=== PATIENT | male | born 1960 | race Caucasian/White ===

== ENCOUNTER 2020-05-13 14:35 | Inpatient (IN) | payer OTHER ==
[~2020-05-13] VITALS: Ht 175.3 cm; Wt 77.1 kg
--- NOTE | 2020-05-13 15:06 | NUR ---
BIBS FROM HOME TO ER BED 9. AAOX4. NOT IN RESP DISTRESS, BREATHING EVEN AND UNLABORED. AMBULATORY. CAME IN FOR L LATERAL RIB AREA PAIN X 2 MONTHS. PAIN IS RATE 8/10 SHARP. AWAITING MD FOR EVAL.
[2020-05-13 15:24] LABS: BASOPHILS # (AUTO) 0.1 /CMM (0.0-0.2); BASOPHILS % (AUTO) 1.1 % (0.0-2.0); EOSINOPHILS % (AUTO) 2.8 % (0.0-6.0); HEMATOCRIT 31 % (39-51); HEMOGLOBIN 10.1 g/dL (13.5-17.5); LYMPHOCYTES # (AUTO) 1.1 /CMM (0.8-4.8); LYMPHOCYTES % (AUTO) 15.5 % (20.0-44.0); MEAN CORPUSCULAR HGB CONC 32 g/dl (31.0-36.0); MEAN CORPUSCULAR VOLUME 84 fL (80-96); MONOCYTES # (AUTO) 0.7 /CMM (0.1-1.30); MONOCYTES % (AUTO) 9.8 % (2.0-12.0); NEUTROPHILS # (AUTO) 4.8 /CMM (1.8-8.9); NEUTROPHILS % (AUTO) 70.8 % (43.0-81.0); PLATELET COUNT (AUTO) 356 /CMM (150-450); RED BLOOD CELL COUNT(AUTO) 3.71 MIL/uL (4.5-6.0); WHITE BLOOD COUNT (AUTO) 6.8 K/uL (4.3-11.0)
[2020-05-13 15:33] LABS: CALCIUM, SERUM 9.2 mg/dL (8.5-10.1); CARBON DIOXIDE 28 mmol/L (21-32); CHLORIDE 99 mmol/L (98-107); CREATININE 1.4 mg/dL (0.6-1.3); GLUCOSE 212 mg/dL (74-106); SODIUM SERUM 137 mmol/L (136-145); UREA NITROGEN, BLOOD 25 mg/dL (7-18)
[2020-05-13 15:47] LABS: ALANINE AMINOTRANSFERASE 39 U/L (12-78); ALBUMIN 2.8 g/dL (3.4-5.0); ALKALINE PHOSPHATASE 81 U/L (46-116); ASPARTATE AMINOTRANSFERASE 21 U/L (15-37); B-TYPE NATRIURETIC PEPTIDE 1327 PG/ML (0-125); BILIRUBIN,DIRECT 0.1 mg/dL (0.0-0.2); BILIRUBIN,TOTAL 0.4 mg/dL (0.2-1.0); TOTAL PROTEIN, SERUM 7.5 g/dL (6.4-8.2)
[2020-05-13] MEDS ORDERED: IV NS 0.9% 250 ML IV ONE (16:53)
[2020-05-13] MEDS ORDERED: IOHEXOL-350 100 ML VIAL IV ONE (16:53)
[2020-05-13] MEDS ORDERED: ONDANSETRON HCL/PF - ER 4 MG/2 ML VIAL IV ONE (17:00)
[2020-05-13] MEDS ORDERED: MORPHINE SULFATE INJ 2 MG/ML DISP.SYRIN IV ONE (17:00)
[2020-05-13] MEDS ORDERED: ATOR40TA PO (17:07)
[2020-05-13] MEDS ORDERED: BENA10TA74 PO (17:07)
[2020-05-13] MEDS ORDERED: OMEP40CA13 PO (17:07)
[2020-05-13] MEDS ORDERED: METF-442 PO (17:07)
[2020-05-13] MEDS ORDERED: GLIM4TAB37 PO (17:07)
[2020-05-13] MEDS ORDERED: ONDANSETRON HCL/PF 4 MG/2 ML VIAL ONE (17:29)
[2020-05-13] MEDS ORDERED: MORPHINE SULFATE INJ 2 MG/ML DISP.SYRIN ONE (17:29)
[2020-05-13] MEDS ORDERED: ENOXAPARIN SODIUM 80 MG/0.8 ML DISP.SYRIN SQ STA (18:03)
[2020-05-13] MEDS ORDERED: ENOXAPARIN SODIUM 80 MG/0.8 ML DISP.SYRIN SQ ONE (18:05)
[2020-05-13] MEDS ORDERED: DEXTROSE 50%-WATER 50 ML DISP.SYRIN IV PRN (18:30)
[2020-05-13] MEDS ORDERED: ONDANSETRON HCL/PF 4 MG/2 ML VIAL IVP PRN (18:30)
[2020-05-13] MEDS ORDERED: ACETAMINOPHEN 325 MG TABLET PO PRN (18:30)
[2020-05-13] MEDS ORDERED: Z GUARD REMEDY 2 OZ OINT TP PRN (18:30)
[2020-05-13] MEDS ORDERED: MAGNESIUM HYDROXIDE 30 ML UDC PO PRN (18:30)
[2020-05-13] MEDS ORDERED: ZOLPIDEM TARTRATE 5 MG TABLET PO PRN (18:30)
[2020-05-13] MEDS: BLOOD SUGAR DIAGNOSTIC 1 EACH STRIP IN SCH (22:20)
[2020-05-13] MEDS ORDERED: ATORVASTATIN 40 MG TABLET ONE (22:23)
[2020-05-13] MEDS: ATORVASTATIN 40 MG TABLET PO SCH (22:23)
--- NOTE | 2020-05-14 01:37 | NUR ---
PT RESTING COMFORTBLY. VSS.
[2020-05-14 05:00] LABS: BASOPHILS # (AUTO) 0.1 /CMM (0.0-0.2); EOSINOPHILS % (AUTO) 4.2 % (0.0-6.0); HEMATOCRIT 31 % (39-51); HEMOGLOBIN 9.8 g/dL (13.5-17.5); LYMPHOCYTES % (AUTO) 16.1 % (20.0-44.0); MEAN CORPUSCULAR HGB CONC 32 g/dl (31.0-36.0); MEAN CORPUSCULAR VOLUME 84 fL (80-96); MONOCYTES # (AUTO) 0.7 /CMM (0.1-1.30); MONOCYTES % (AUTO) 12.3 % (2.0-12.0); NEUTROPHILS % (AUTO) 66.4 % (43.0-81.0); PLATELET COUNT (AUTO) 359 /CMM (150-450); RED BLOOD CELL COUNT(AUTO) 3.68 MIL/uL (4.5-6.0)
--- NOTE | 2020-05-14 07:24 | NUR ---
REPORT GIVEN TO JOSSE STRONG FOR MARGI
[2020-05-14] MEDS: BLOOD SUGAR DIAGNOSTIC 1 EACH STRIP IN SCH ×4 (07:50→21:42)
[2020-05-14] MEDS ORDERED: PANTOPRAZOLE 40 MG TABLET.DR PO ONE (07:57)
[2020-05-14] MEDS ORDERED: ENOXAPARIN SODIUM 80 MG/0.8 ML DISP.SYRIN SQ ONE (07:57)
[2020-05-14] MEDS: PANTOPRAZOLE 40 MG TABLET.DR PO SCH (08:03)
[2020-05-14] MEDS: ENOXAPARIN SODIUM 80 MG/0.8 ML DISP.SYRIN SQ SCH ×2 (08:04→21:00)
[2020-05-14 08:39] LABS: CALCIUM, SERUM 9.2 mg/dL (8.5-10.1); MAGNESIUM 1.6 mg/dL (1.8-2.4); PHOSPHORUS 4.1 mg/dL (2.5-4.9)
--- NOTE | 2020-05-14 09:27 | NUR ---
PATEINT SEEN AND EVALUATED BY DR. SCHAFFER AND SUELLEN MCCORMICK NP THIS AM. PATIENT REMAINS ON ROOM AIR WITH SPO2 OF 91-94%. NO SOB NOTED. BREAKFAST GIVEN AND TOLERATED WELL.
[2020-05-14 11:19] LABS: IRON, SERUM 21 ug/dl (50-175); TOTAL IRON BINDING CAPACITY 174 ug/dl (250-450)
[2020-05-14] MEDS ORDERED: Magnesium 1GM/D5W 100ML PREMIX 200 ML IV ONE (11:58)
[2020-05-14] MEDS: INSULIN REGULAR, HUMAN 100 UNIT/ML 3 ML VIAL SQ PRN ×2 (12:00→21:46)
[2020-05-14] MEDS: Magnesium 1GM/D5W 100ML PREMIX 100 ML IV SCH ×2 (12:06→13:21)
[2020-05-14 12:09] LABS: FERRITIN 1244 ng/mL (8-388)
--- NOTE | 2020-05-14 17:06 | NUR ---
CT BIOPSY TOMORROW, NPO AFTER MIDNIGHT & HOLD LOVENOX TONIGHT
--- NOTE | 2020-05-14 17:07 | NUR ---
PATIENT REPORTED X2 WEEKS OF DIARRHEA.
--- NOTE | 2020-05-14 18:30 | NUR ---
REPORT GIVEN TO MARYANA STRONG FOR MARGI.
--- NOTE | 2020-05-14 18:38 | NUR ---
PATIENT TRANSFERRED TOR OOM 328-1 VIA ACLS PROTOCOL. NO DISTRESS NOTED. PATIENT IN STABLE CONDITION.
--- NOTE | 2020-05-14 18:50 | NUR ---
ADVERTISING SALES EXECUTIVE NOTE PATIENT ARRIVED FROM ER BY KALYANI. PATIENT IN NO ACUTE DISTRESS. NO SOB NOTED. PATIENT BREATHING IS EVEN AND UNLABORED. PATIENT VITAL SIGNS ARE STABLE. PATIENT BP 144/70, HR 79, TEMP 98.6F, RR 18, AND ON RA SATURATING >95% SPO2. PATIENT BED IS LOCKED AND IN LOWEST POSITION. CALL LIGHT WITHIN REACH. WILL ENDORSE ADMISSION TO PM SHIFT FOR MARGI.
[2020-05-14 20:00] VITALS: BP 147/73
--- NOTE | 2020-05-14 20:00 | NUR ---
RN NOTES : RECEIVED PATIENT FROM DAY NURSE,PT. CAME FROM ER TO ADMIT TELE, AWAKE ALERT AND ORIENTEDX3,RESPIRATIONS EVEN AND UNLABORED WITH EQUAL RISE AND FALL OF CHEST, PLACED ON VETERINARIAN POULTRY, SR 78, RIGHT AC # 18 G INTACT, PT. REFUSED SKIN ASSESSMNT ENCOURAGED, STILL REFUSED DISCUSSED PLAN OF CARE , ORIENTED TO STAFF AND CALL LIGHT AND KEPT WITHIN REACH, SAFETY PRECAUTIONS MAINTAINED,ALL NEEDS ATTENDED, WILL CONTINUE TO MONITOR , WILL CONTINUE TO MONITOR..
[2020-05-14] MEDS: HYDROCODONE/APAP 5/325MG TABLET PO PRN (20:23)
[2020-05-14 21:04] VITALS: BP 135/78
[2020-05-14] MEDS: ATORVASTATIN 40 MG TABLET PO SCH (21:42)
[2020-05-15] VITALS (7 sets, daily range): BP systolic 116–136; BP diastolic 64–98
--- NOTE | 2020-05-15 07:01 | NUR ---
RN NOTES: PT. IS NPO FOR PROCEDURES PER MD ORDERS , OBTAINED CONSENT FOR PROCEDURES , PT. BS # [id number] AND REFUSED COVERAGE, PER PT. MY BLOOD SUGAR IF FINE., ENDORSE TO AM NURSE FOR CONTUNITY OF CARE.
[2020-05-15 07:15] LABS: CALCIUM, SERUM 9.4 mg/dL (8.5-10.1); CREATININE 0.8 mg/dL (0.6-1.3); PHOSPHORUS 3.4 mg/dL (2.5-4.9); POTASSIUM 4.5 mmol/L (3.5-5.1)
[2020-05-15 07:19] LABS: HEMATOCRIT 33 % (39-51); HEMOGLOBIN 10.6 g/dL (13.5-17.5); MEAN CORPUSCULAR VOLUME 83 fL (80-96); RED BLOOD CELL COUNT(AUTO) 3.99 MIL/uL (4.5-6.0); WHITE BLOOD COUNT (AUTO) 5.7 K/uL (4.3-11.0)
[2020-05-15 07:20] LABS: BASOPHILS # (AUTO) 0.1 /CMM (0.0-0.2); EOSINOPHILS % (AUTO) 3.6 % (0.0-6.0); LYMPHOCYTES % (AUTO) 17.3 % (20.0-44.0); MEAN CORPUSCULAR HGB CONC 32 g/dl (31.0-36.0); MONOCYTES # (AUTO) 0.6 /CMM (0.1-1.30); MONOCYTES % (AUTO) 11.3 % (2.0-12.0); NEUTROPHILS # (AUTO) 3.8 /CMM (1.8-8.9); NEUTROPHILS % (AUTO) 66.8 % (43.0-81.0); PLATELET COUNT (AUTO) 379 /CMM (150-450)
[2020-05-15] MEDS: PANTOPRAZOLE 40 MG TABLET.DR PO SCH (07:30)
[2020-05-15] MEDS: BLOOD SUGAR DIAGNOSTIC 1 EACH STRIP IN SCH ×4 (07:34→22:39)
--- NOTE | 2020-05-15 07:45 | NUR ---
LIBRARY CATALOGING TECHNICIAN OPENING NOTES RECEIVED PATIENT IN BED, ASLEEP. PATIENT ON ROOM AIR; BREATHING EVEN AND UNLABORED, NO SOB NOTED. NO S/S OF PAIN SUCH MOANING, FACIAL GRIMACING OR GUARDING AT THIS TIME. RAC IV ACCESS G #18 PRESENT AND INTACT. NPO AT THIS TIME. SAFETY PRECAUTIONS IN PLACE; BED IN LOW POSITION AND LOCKED, RAILS UP X2, CALL LIGHT WITHIN REACH. WILL CONTINUE TO MONITOR PATIENT.
[2020-05-15] MEDS: ENOXAPARIN SODIUM 80 MG/0.8 ML DISP.SYRIN SQ SCH ×2 (08:02→21:03)
--- NOTE | 2020-05-15 08:02 | NUR ---
DIRECTOR STATE PHARMACY NOTES PER MD HOLD RORY WITHIN 12 HRS OF SCHEDULED BIOPSY. PER SCHEDULE BIOPSY TODAY 05/15/20
--- NOTE | 2020-05-15 14:19 | NUR ---
RESEARCH AND EVALUATION MANAGER NOTES PATIENT LEFT FOR PROCEDURE.
[2020-05-15] MEDS ORDERED: NALOXONE PREFILLED SYRINGE 2 MG/2 ML SYRINGE IV ONE (14:30)
[2020-05-15] MEDS ORDERED: MIDAZOLAM HCL 5MG/ML VIAL 25 MG/5 ML VIAL IV ONE (14:30)
[2020-05-15] MEDS ORDERED: FENTANYL PF 250MCG/5ML AMPUL IV ONE (14:30)
[2020-05-15] MEDS: HYDROCODONE/APAP 5/325MG TABLET PO PRN ×2 (15:49→20:02)
--- NOTE | 2020-05-15 15:50 | NUR ---
INTERPRETER NOTES PATIENT COMPLAINING OF PAIN 12/08. PRN NORCO ADMINISTERED PER MD ORDER.
--- NOTE | 2020-05-15 18:50 | NUR ---
AGENT SPA DESK CLOSING NOTES PATIENT REMAINS IN BED, AWAKE, A/O X4; AFTER BIOPSY. PATIENT ON ROOM AIR; BREATHING EVEN AND UNLABORED, NO SOB NOTED DURING THE DAY. PAIN TREATED WITH PRN NORCO. RAC IV ACCESS G #18 PRESENT AND INTACT. ALL NEEDS ATTENDED THROUGHOUT THE DAY. SAFETY PRECAUTIONS IN PLACE; BED IN LOW POSITION AND LOCKED, RAILS UP X2, CALL LIGHT WITHIN REACH. WILL ENDORSE TO MENTAL HEALTH ADVANCED PRACTICE NURSE NURSE.
[2020-05-15] MEDS: ATORVASTATIN 40 MG TABLET PO SCH (22:13)
[2020-05-15] MEDS: INSULIN REGULAR, HUMAN 100 UNIT/ML 3 ML VIAL SQ PRN (22:17)
[2020-05-16] VITALS (7 sets, daily range): BP systolic 111–131; BP diastolic 56–71
[2020-05-16] MEDS: BLOOD SUGAR DIAGNOSTIC 1 EACH STRIP IN SCH ×5 (05:22→21:24)
--- NOTE | 2020-05-16 05:40 | NUR ---
CLOSING NOTES: ALERT AND ORIENTATED X4 AMBULATES TO THE BATHROOM NO SOB SNACK GIVEN AND CONSUMED 100% AMBIEN GIVEN FOR SLEEP AND EFFECTIVE
[2020-05-16] MEDS: HYDROCODONE/APAP 5/325MG TABLET PO PRN (07:21)
[2020-05-16] MEDS: PANTOPRAZOLE 40 MG TABLET.DR PO SCH (07:21)
--- NOTE | 2020-05-16 07:35 | NUR ---
WOOD FENCE ERECTOR OPENING NOTES PATIENT RECEIVED IN BED. A/O X4. AFEBRILE. NO S/SX OF RESPIRATORY DISTRESS. BREATHING EVEN AND UNLABORED. IV SITE R AC #18 G. SAFETY MEASURES MAINTAINED. BED IN LOWEST POSITION, LOCKED. SIDE RAILS UP X2. CALL LIGHT WITHIN REACH. WILL CONTINUE PLAN OF CARE.
[2020-05-16] MEDS: ENOXAPARIN SODIUM 80 MG/0.8 ML DISP.SYRIN SQ SCH ×2 (07:51→21:07)
[2020-05-16 08:35] LABS: BASOPHILS % (AUTO) 0.7 % (0.0-2.0); EOSINOPHILS % (AUTO) 4.2 % (0.0-6.0); HEMATOCRIT 34 % (39-51); LYMPHOCYTES # (AUTO) 1.2 /CMM (0.8-4.8); LYMPHOCYTES % (AUTO) 16.9 % (20.0-44.0); MEAN CORPUSCULAR HGB CONC 32 g/dl (31.0-36.0); MEAN CORPUSCULAR VOLUME 84 fL (80-96); MONOCYTES # (AUTO) 0.6 /CMM (0.1-1.30); NEUTROPHILS # (AUTO) 4.8 /CMM (1.8-8.9); NEUTROPHILS % (AUTO) 69.2 % (43.0-81.0); PLATELET COUNT (AUTO) 394 /CMM (150-450); RED BLOOD CELL COUNT(AUTO) 4.08 MIL/uL (4.5-6.0); WHITE BLOOD COUNT (AUTO) 6.9 K/uL (4.3-11.0)
[2020-05-16 08:44] LABS: CALCIUM, SERUM 9.6 mg/dL (8.5-10.1); CREATININE 0.8 mg/dL (0.6-1.3); MAGNESIUM 1.9 mg/dL (1.8-2.4); PHOSPHORUS 3.4 mg/dL (2.5-4.9); POTASSIUM 4.5 mmol/L (3.5-5.1)
[2020-05-16] MEDS: INSULIN REGULAR, HUMAN 100 UNIT/ML 3 ML VIAL SQ PRN ×2 (12:39→21:35)
--- NOTE | 2020-05-16 19:44 | NUR ---
CREAM DIPPER CLOSING NOTES PATIENT IN BED. A/O X4. AFEBRILE. IN NO APPARENT DISTRESS. BREATHING EVEN AND UNLABORED. IV SITE R AC #18 G. SAFETY MEASURES MAINTAINED. BED IN LOWEST POSITION, LOCKED. SIDE RAILS UP X2. CALL LIGHT WITHIN REACH. WILL ENDORSE TO TOBACCO STEMMER FOR MARGI.
--- NOTE | 2020-05-16 19:45 | NUR ---
MS/RN OPENING NOTE RECEIVED PATIENT IN BED AWAKE, A/OX4. NO S/SX OF ACUTE DISTRESS NOTED. DENIES PAIN OR DISCOMFORT AT THIS TIME. IV ACCESS ON RAC #18G PATENT AND INTACT. ALL SAFETY MEASURES IN PLACE BED LOCKED AND IN LOWEST POSITION, CALL LIGHT WITHIN REACH, WILL CONTINUE TO MONITOR AND ENSURE SAFETY.
[2020-05-16] MEDS: ATORVASTATIN 40 MG TABLET PO SCH (21:08)
[2020-05-17] MEDS: BLOOD SUGAR DIAGNOSTIC 1 EACH STRIP IN SCH ×4 (06:58→21:42)
[2020-05-17] MEDS: INSULIN REGULAR, HUMAN 100 UNIT/ML 3 ML VIAL SQ PRN ×3 (07:01→21:48)
--- NOTE | 2020-05-17 07:28 | NUR ---
MS/RN CLOSING NOTE RECEIVED PATIENT IN BED AWAKE, A/OX4. NO S/SX OF ACUTE DISTRESS NOTED. DENIES PAIN OR DISCOMFORT AT THIS TIME. IV ACCESS ON RAC #18G PATENT AND INTACT. ALL SAFETY MEASURES IN PLACE BED LOCKED AND IN LOWEST POSITION, CALL LIGHT WITHIN REACH, WILL CONTINUE TO MONITOR AND ENSURE SAFETY.
--- NOTE | 2020-05-17 07:30 | NUR ---
MS/RN Opening note Patient received from [facility] shift. A/O X3, vital signs stable, no fever noted. Denies any pain or discomfort at this time. All questions and concerns answered. Safety measures in place, call light within reach, will continue to monitor and ensure safety.
[2020-05-17 08:00] VITALS: BP 118/63
[2020-05-17 08:24] LABS: BASOPHILS # (AUTO) 0.1 /CMM (0.0-0.2); EOSINOPHILS % (AUTO) 2.8 % (0.0-6.0); HEMATOCRIT 34 % (39-51); LYMPHOCYTES % (AUTO) 15.8 % (20.0-44.0); MEAN CORPUSCULAR HGB CONC 32 g/dl (31.0-36.0); MEAN CORPUSCULAR VOLUME 83 fL (80-96); MONOCYTES # (AUTO) 0.6 /CMM (0.1-1.30); MONOCYTES % (AUTO) 9.5 % (2.0-12.0); NEUTROPHILS # (AUTO) 4.3 /CMM (1.8-8.9); NEUTROPHILS % (AUTO) 70.9 % (43.0-81.0); PLATELET COUNT (AUTO) 381 /CMM (150-450)
[2020-05-17] MEDS: PANTOPRAZOLE 40 MG TABLET.DR PO SCH (08:30)
[2020-05-17] MEDS: ENOXAPARIN SODIUM 80 MG/0.8 ML DISP.SYRIN SQ SCH (08:30)
[2020-05-17 08:39] LABS: CALCIUM, SERUM 9.5 mg/dL (8.5-10.1); CREATININE 0.9 mg/dL (0.6-1.3); MAGNESIUM 1.8 mg/dL (1.8-2.4); PHOSPHORUS 3.2 mg/dL (2.5-4.9); POTASSIUM 4.1 mmol/L (3.5-5.1)
--- NOTE | 2020-05-17 09:00 | NUR ---
MS/mobile heavy equipment mechanic Morning medication administered as ordered.
--- NOTE | 2020-05-17 11:00 | NUR ---
MS/RN S/B Willie PLANT OPERATIONS MANAGER Seen by PLANT OPERATIONS MANAGER - morning labs ordered, await thoracic consult with Dr Purdy.
--- NOTE | 2020-05-17 12:00 | NUR ---
MS/RN Bloodsugar Blood sugar at noon 366, coverage administered as per sliding scale.
--- NOTE | 2020-05-17 13:00 | NUR ---
MS/RN S/B Dr Severino Seen by Dr Severino - thoracic surgery consult evaluation for pleurx drain placement.
[2020-05-17 16:00] VITALS: BP 125/64
[2020-05-17] MEDS: HYDROCODONE/APAP 5/325MG TABLET PO PRN (16:41)
--- NOTE | 2020-05-17 17:00 | NUR ---
MS/RN Blood sugar Blood sugar at 5p - 109, no coverage needed.
--- NOTE | 2020-05-17 18:32 | NUR ---
MS/RN End note Patient remains in stable condition, all questions and concenrs addressed. Will endorse to power and recovery shift engineer.
[2020-05-17 19:35] VITALS: BP 128/66
[2020-05-17] MEDS: ATORVASTATIN 40 MG TABLET PO SCH (21:40)
[2020-05-18] MEDS: BLOOD SUGAR DIAGNOSTIC 1 EACH STRIP IN SCH ×4 (06:38→21:51)
[2020-05-18] MEDS: INSULIN REGULAR, HUMAN 100 UNIT/ML 3 ML VIAL SQ PRN ×3 (06:39→17:39)
[2020-05-18 07:22] LABS: BASOPHILS # (AUTO) 0.1 /CMM (0.0-0.2); BASOPHILS % (AUTO) 0.9 % (0.0-2.0); EOSINOPHILS % (AUTO) 3.5 % (0.0-6.0); HEMATOCRIT 33 % (39-51); HEMOGLOBIN 10.6 g/dL (13.5-17.5); LYMPHOCYTES # (AUTO) 1.1 /CMM (0.8-4.8); LYMPHOCYTES % (AUTO) 17.9 % (20.0-44.0); MEAN CORPUSCULAR HGB CONC 32 g/dl (31.0-36.0); MEAN CORPUSCULAR VOLUME 83 fL (80-96); MONOCYTES # (AUTO) 0.7 /CMM (0.1-1.30); MONOCYTES % (AUTO) 11.2 % (2.0-12.0); NEUTROPHILS # (AUTO) 4.1 /CMM (1.8-8.9); NEUTROPHILS % (AUTO) 66.5 % (43.0-81.0); PLATELET COUNT (AUTO) 378 /CMM (150-450); RED BLOOD CELL COUNT(AUTO) 3.98 MIL/uL (4.5-6.0); WHITE BLOOD COUNT (AUTO) 6.1 K/uL (4.3-11.0)
--- NOTE | 2020-05-18 07:35 | NUR ---
MS RN OPENING NOTES PT RECEIVED AWAKE IN BED IN NO ACUTE SIGNS OF DISTRESS. A/O X4. ABLE TO MAKE NEEDS KNOWN, DENIES PAIN OR ANY DISCOMFORTS AT THIS TIME. PT FOR CHEST TUBE PLACEMENT TODAY BY DR SRI RUIZ, NPO MAINTAINED. ON ROOM AIR, BREATHING EVEN AND UNLABORED. IV ACCESS ON RAC G#18 INTACT AND PATENT. SAFETY MEASURES IN PLACE: BED IN LOWEST LOCKED POSITION WITH SR UP X2. CALL LIGHT W/IN REACH. WILL CONTINUE TO MONITOR PT ACCORDINGLY.
[2020-05-18 07:37] LABS: CALCIUM, SERUM 9.3 mg/dL (8.5-10.1); CREATININE 0.9 mg/dL (0.6-1.3); POTASSIUM 4.7 mmol/L (3.5-5.1)
[2020-05-18 08:00] VITALS: BP 125/70
[2020-05-18] MEDS: PANTOPRAZOLE 40 MG TABLET.DR PO SCH (08:33)
--- NOTE | 2020-05-18 08:38 | NUR ---
RN NOTES RECEIVED CALL FROM DR RUIZ AND CANCELLED CHEST TUBE PLACEMENT TODAY AND HE WILL DO IT TOMORROW DUE TO NO AVAILABLE TIME IN O.R. TODAY. DR RUIZ WITH ORDER TO GIVE LOVENOX TODAY AND NPO TO BE ENFORCED TOMORROW. WILL CONTINUE TO MONITOR.
[2020-05-18] MEDS ORDERED: ENOXAPARIN SODIUM 80 MG/0.8 ML DISP.SYRIN SQ ONE (09:30)
--- NOTE | 2020-05-18 09:30 | NUR ---
m/s judge clerk: notes received pt sitting up in bed awake, a/ox4, but depressed and suicidal, pt wants to jump off the window. cn aware. pancho (acnp) aware and pt for psych eval.
--- NOTE | 2020-05-18 10:30 | NUR ---
m/s water maintenance supervisor: notes pt is on the phone at this time. no distress noted. awaiting for psych eval. will continue to monitor.
[2020-05-18] MEDS ORDERED: BUPIVACAINE 0.25% 75 MG/30 ML VIAL ONE (11:50)
[2020-05-18] MEDS ORDERED: EPINEPHRINE (1:1000) 1 MG/ML AMPUL ONE (11:51)
--- NOTE | 2020-05-18 12:00 | NUR ---
tele senior oracle soa developer: notes having lunch at this time. denies si/hi at this time. encouraged to verbalized feelings. will continue to monitor.
--- NOTE | 2020-05-18 14:00 | NUR ---
m/s receiving barn custodian: notes resting quietly in bed. no distress noted. still awaiting for psych eval. call light within reach.
[2020-05-18 16:00] VITALS: BP 135/83
--- NOTE | 2020-05-18 17:00 | NUR ---
m/s liquid hydrogen plant operator: notes having dinner at this time. no distress noted.
[2020-05-18] MEDS: HYDROCODONE/APAP 5/325MG TABLET PO PRN (17:42)
--- NOTE | 2020-05-18 17:42 | NUR ---
m/s mailing machine operator: notes c/o 7/10 left side of body. norco 5/325mmg 1 tab po as ordered. pt appears to be in a good mood. pt is always on the phone. call light within reach. will continue to monitor.
--- NOTE | 2020-05-18 18:42 | NUR ---
m/s millwork estimator: notes resting comfortable in bed. voiced no discomfort. instructed to call for assistance. will continue to monitor.
[2020-05-18 20:00] VITALS: BP 142/69
[2020-05-18] MEDS: ATORVASTATIN 40 MG TABLET PO SCH (21:51)
--- NOTE | 2020-05-18 21:58 | NUR ---
RN NOTE PATIENT'S BLOOD SUGAR IS 271 MG/DL. PATIENT WILL BE NPO AFTER MIDNIGHT FOR THE PROCEDURE. NO SLIDING SCALE INSULIN GIVEN AT THIS TIME TO PREVENT HYPOGLYCEMIA. CHARGE NURSE MADE AWARE.
--- NOTE | 2020-05-19 04:19 | NUR ---
RN NOTE PATIENT IS NPO POST MIDNIGHT FOR SCHEDULED PROCEDURE OF LEFT PLEURX CATHETER PLACEMENT AT 11 AM. CONTINUING TO MONITOR THE PATIENT FOR ANY MARGI.
[2020-05-19] MEDS: BLOOD SUGAR DIAGNOSTIC 1 EACH STRIP IN SCH ×3 (07:02→16:39)
[2020-05-19] MEDS: PANTOPRAZOLE 40 MG TABLET.DR PO SCH (07:39)
[2020-05-19 07:53] LABS: BASOPHILS # (AUTO) 0.1 /CMM (0.0-0.2); BASOPHILS % (AUTO) 0.8 % (0.0-2.0); EOSINOPHILS % (AUTO) 3.9 % (0.0-6.0); HEMATOCRIT 31 % (39-51); LYMPHOCYTES % (AUTO) 15.7 % (20.0-44.0); MEAN CORPUSCULAR HGB CONC 32 g/dl (31.0-36.0); MEAN CORPUSCULAR VOLUME 83 fL (80-96); MONOCYTES # (AUTO) 0.8 /CMM (0.1-1.30); MONOCYTES % (AUTO) 12.8 % (2.0-12.0); NEUTROPHILS % (AUTO) 66.8 % (43.0-81.0); PLATELET COUNT (AUTO) 375 /CMM (150-450); RED BLOOD CELL COUNT(AUTO) 3.78 MIL/uL (4.5-6.0); WHITE BLOOD COUNT (AUTO) 6.1 K/uL (4.3-11.0)
[2020-05-19 08:00] VITALS: BP 134/73
[2020-05-19 08:16] LABS: CALCIUM, SERUM 9.2 mg/dL (8.5-10.1); CREATININE 0.9 mg/dL (0.6-1.3); POTASSIUM 4.4 mmol/L (3.5-5.1)
--- NOTE | 2020-05-19 10:05 | NUR ---
Field Hand was notified during interdisciplinary meeting this morning regarding a psychiatric consult requested for this patient. SW followed-up with Dr. Alatorre regarding psychiatrist transaction advisory services manager. Per Dr. Alatorre, psychiatrist Dr. Altamirano is aware of patient's psychiatric consult and will meet with the patient today.
[2020-05-19] MEDS ORDERED: IOHEXOL 50 ML IV ONE (10:31)
[2020-05-19] MEDS ORDERED: HEPARIN SODIUM, PORCINE 1,000 UNIT/ML VIAL ONE ×2 (10:32→10:57)
[2020-05-19] MEDS ORDERED: BUPIVACAINE 0.25% 75 MG/30 ML VIAL ONE (10:32)
--- NOTE | 2020-05-19 12:10 | NUR ---
MS/RN - Notes Patient came back s/p left pleurx catheter placement, dressing is clean, dry, intact, no acute distress, A/O x 4, denies pain at this time. Pleurx catheter kit for home use at bedside.
[2020-05-19] MEDS: HYDROCODONE/APAP 5/325MG TABLET PO PRN ×2 (14:03→22:05)
[2020-05-19] MEDS: MORPHINE SULFATE INJ 2 MG/ML DISP.SYRIN IV PRN (15:10)
[2020-05-19 16:00] VITALS: BP 161/81
[2020-05-19] MEDS: INSULIN REGULAR, HUMAN 100 UNIT/ML 3 ML VIAL SQ PRN (17:10)
--- NOTE | 2020-05-19 19:25 | NUR ---
MS/RN - End of shift summary Patient is alert and oriented x 4, calm and cooperative with care, stable on room air, no bleeding on the left pleurx catheter site, dressing is C/D/I. Seen and evaluated by Dr. Altamirano for depression, suicidal ideation verbalizing he wants to jump off the window, started on new medication. Plan for discharge home tomorrow.
--- NOTE | 2020-05-19 19:43 | NUR ---
MS RN OPENING SHIFT PT RECEIVED AT BEDSIDE. PT SLEEPING. BED LOCKED. BED ALARM ON. BED ON LOWEST POSITION. ALERT AND ORIENTED X1. PT ON ROOM AIR. TOLERATING WELL. NO SOB. EVEN AND UNLABORED BREATHING NOTED. LAC #20. FLUSHING WELL, INTACT, PATENT. NO OCCLUSIONS, NO INFILTRATION. WILL CONTINUE TO MONITOR. D/C PLAN IN AM. WILL CONTINUE PLAN OF CARE.
[2020-05-19] MEDS: ATORVASTATIN 40 MG TABLET PO SCH (21:57)
[2020-05-19] MEDS ORDERED: MIRTAZAPINE 15 MG TABLET PO SCH (22:00)
[2020-05-19] MEDS: ENOXAPARIN SODIUM 60 MG/0.6 ML DISP.SYRIN SQ SCH (22:12)
[2020-05-20] MEDS: BLOOD SUGAR DIAGNOSTIC 1 EACH STRIP IN SCH ×2 (00:10→06:43)
[2020-05-20] MEDS: INSULIN REGULAR, HUMAN 100 UNIT/ML 3 ML VIAL SQ PRN ×2 (00:17→06:45)
--- NOTE | 2020-05-20 07:31 | NUR ---
MS RN CLOSING NOTES PT LAYING IN BED. CALM, COOPERATIVE.ALERT AND ORIENTED X4. NO CURRRENT COMPLAINTS OF PAIN, DISTRESSS. LAC#20 INTACT, PATENT, FLUSHING WELL. NO OCCLUSIONS, NO INFILTRATIONS. WILL CONTINUE TO MONTOR FOR PSYCH EVALLUATION. PT SHOWS NO SIGNS OF DISTRESS. DOES NOT STATE SUICIDAL IDEATIONS. PT TOLERATING ROOM AIR AT 96%. WILL CONTINUE TO MONITOR. WILL CONTINUE PLAN OF CARE.
--- NOTE | 2020-05-20 07:35 | NUR ---
MS RN OPENING NOTES PATIENT IN BED. A/O X 4. NO SOB NOTED. IN NO APPARENT DISTRESS. BREATHING EVEN AND UNLABORED. ON ROOM AIR, TOLERATING WELL. IV SITE L AC #20G SL. SAFETY MEASURES MAINTAINED. BED IN LOWEST POSITION, LOCKED. SIDE RAILS UP X 2. CALL LIGHT WITHIN REACH. WILL CONTINUE PLAN OF CARE.
[2020-05-20] MEDS: PANTOPRAZOLE 40 MG TABLET.DR PO SCH (07:56)
[2020-05-20 08:00] VITALS: BP 126/72
[2020-05-20] MEDS: ENOXAPARIN SODIUM 60 MG/0.6 ML DISP.SYRIN SQ SCH (09:12)
[2020-05-20 09:21] LABS: BASOPHILS # (AUTO) 0.1 /CMM (0.0-0.2); BASOPHILS % (AUTO) 0.9 % (0.0-2.0); HEMATOCRIT 31 % (39-51); HEMOGLOBIN 10.2 g/dL (13.5-17.5); LYMPHOCYTES # (AUTO) 0.9 /CMM (0.8-4.8); MEAN CORPUSCULAR HGB CONC 33 g/dl (31.0-36.0); MEAN CORPUSCULAR VOLUME 83 fL (80-96); MONOCYTES # (AUTO) 0.6 /CMM (0.1-1.30); MONOCYTES % (AUTO) 10.4 % (2.0-12.0); NEUTROPHILS # (AUTO) 4.1 /CMM (1.8-8.9); NEUTROPHILS % (AUTO) 69.7 % (43.0-81.0); PLATELET COUNT (AUTO) 346 /CMM (150-450); RED BLOOD CELL COUNT(AUTO) 3.75 MIL/uL (4.5-6.0); WHITE BLOOD COUNT (AUTO) 5.9 K/uL (4.3-11.0)
[2020-05-20 09:34] LABS: CALCIUM, SERUM 8.7 mg/dL (8.5-10.1); CREATININE 1.1 mg/dL (0.6-1.3); POTASSIUM 4.6 mmol/L (3.5-5.1)
[2020-05-20] MEDS: MORPHINE SULFATE INJ 2 MG/ML DISP.SYRIN IV PRN (10:50)
--- NOTE | 2020-05-20 13:02 | NUR ---
MS RN NOTES PATIENT IS DISCHARGED. MEDICALLY STABLE. BP 126/42 VA 87 RR 16 TEMP 97.8 SAO2 97%. DISCHARGE AND HOME MEDICATIONS INSTRUCTIONS WERE GIVEN.
--- NOTE | 2020-05-20 14:18 | NUR ---
Technical Trainer Consult: SW to follow up with assigned RN with psychiatric consult. Pt is discharge today back at home with medication.
[2020-05-20 16:00] VITALS: BP 142/76
== END 2020-05-20 18:17 | disposition home health service (06) | DRG 686 ==
LOC: ER 14:44 → TRANSITION 17:23 → TELE 05-14 18:18 → MED 05-16 12:22
PROVIDERS: ADMIT Nurse Practitioner Acute Care; ATTEND Internal Medicine
PROC: 0TB03ZX Excision of Right Kidney, Percutaneous Approach, Diagnostic (ICD-10-PCS; 2020-05-15)
PROC: 0WHB33Z Insertion of Infusion Device into Left Pleural Cavity, Percutaneous Approach (ICD-10-PCS; principal; 2020-05-19)
PROC: 0W9B30Z Drainage of Left Pleural Cavity with Drainage Device, Percutaneous Approach (ICD-10-PCS; 2020-05-19)
DX: C64.1 Malignant neoplasm of right kidney, except renal pelvis (principal); I26.99 Other pulmonary embolism without acute cor pulmonale; N17.0 Acute kidney failure with tubular necrosis; J18.9 Pneumonia, unspecified organism; E44.1 Mild protein-calorie malnutrition; C78.02 Secondary malignant neoplasm of left lung; J91.0 Malignant pleural effusion; I13.0 Hypertensive heart and chronic kidney disease with heart failure and stage 1 through stage 4 chronic kidney disease, or unspecified chronic kidney disease; C78.01 Secondary malignant neoplasm of right lung; J98.19 Other pulmonary collapse; C79.89 Secondary malignant neoplasm of other specified sites; I50.9 Heart failure, unspecified; E27.9 Disorder of adrenal gland, unspecified; E78.5 Hyperlipidemia, unspecified; F17.210 Nicotine dependence, cigarettes, uncomplicated; F32.9 Major depressive disorder, single episode, unspecified; D64.9 Anemia, unspecified; Z86.711 Personal history of pulmonary embolism; E88.09 Other disorders of plasma-protein metabolism, not elsewhere classified; Z68.25 Body mass index [BMI] 25.0-25.9, adult; N18.9 Chronic kidney disease, unspecified; E11.22 Type 2 diabetes mellitus with diabetic chronic kidney disease; Z20.822 Contact with and (suspected) exposure to COVID-19; K57.30 Diverticulosis of large intestine without perforation or abscess without bleeding; Z79.84 Long term (current) use of oral hypoglycemic drugs
CPT/HCPCS: 36415; 71045-TC; 74150-TC; 76942-TC; 77012-TC; 80048-TC; 80061-TC; 80076-TC; 82378; 82728-TC; 82962-TC; 83540-TC; 83615-TC; 83735-TC; 83880; 84100-TC; 84484-TC; 85025-TC; 85378-TC; 85610-TC; 85730-TC; 87081-TC; 88112-TC; 88305-TC; 88312-TC; 93970-TC; G0378; J0171; J0690; J1644; J1650; J1815; J2250; J2270; J2310; J2405; J2704; J3010; J3475; J3490; J7050; Q9967

== ENCOUNTER 2020-05-21 16:51 | Emergency (ER) | payer OTHER ==
[~2020-05-21] VITALS: Ht 180.3 cm; Wt 72.6 kg
[~2020-05-21 16:51] MED LIST: ATOR40TA PO; BENA10TA74 PO; GLIM4TAB37 PO; METF-442 PO; OMEP40CA13 PO
--- NOTE | 2020-05-21 17:28 | NUR ---
pt ambulatory to er. roomed. pt states he was feeling week and faint earlier. pt states he was discharge yesterday after being admitted for pleural effusion. states he noticed "bubbling" in the que tube and got worrie so he called dr yu and was advised to go to ed. 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 endorses slight sob. stable vitals. awaiting md kent.
--- NOTE | 2020-05-21 18:12 | NUR ---
dr austin at bedside for eval.
[2020-05-21 18:26] LABS: BASOPHILS % (AUTO) 0.6 % (0.0-2.0); EOSINOPHILS % (AUTO) 1.5 % (0.0-6.0); HEMATOCRIT 31 % (39-51); HEMOGLOBIN 9.9 g/dL (13.5-17.5); LYMPHOCYTES # (AUTO) 1.1 /CMM (0.8-4.8); LYMPHOCYTES % (AUTO) 12.9 % (20.0-44.0); MEAN CORPUSCULAR HGB CONC 32 g/dl (31.0-36.0); MEAN CORPUSCULAR VOLUME 84 fL (80-96); MONOCYTES # (AUTO) 0.7 /CMM (0.1-1.30); MONOCYTES % (AUTO) 8.2 % (2.0-12.0); NEUTROPHILS # (AUTO) 6.8 /CMM (1.8-8.9); NEUTROPHILS % (AUTO) 76.8 % (43.0-81.0); PLATELET COUNT (AUTO) 341 /CMM (150-450); RED BLOOD CELL COUNT(AUTO) 3.65 MIL/uL (4.5-6.0); WHITE BLOOD COUNT (AUTO) 8.8 K/uL (4.3-11.0)
[2020-05-21 18:58] LABS: ALBUMIN 2.6 g/dL (3.4-5.0); BILIRUBIN,DIRECT 0.1 mg/dL (0.0-0.2); BILIRUBIN,TOTAL 0.3 mg/dL (0.2-1.0); CREATININE 1.6 mg/dL (0.6-1.3); POTASSIUM 4.8 mmol/L (3.5-5.1); TOTAL PROTEIN, SERUM 7.4 g/dL (6.4-8.2)
--- NOTE | 2020-05-21 19:30 | NUR ---
DR TREVINO SPEAKING WITH DR HERNANDEZ
--- NOTE | 2020-05-21 19:43 | NUR ---
[id number] [facility]
[2020-05-21 20:24] VITALS: BP 110/68
== END 2020-05-21 20:25 | disposition home or self-care (01) ==
LOC: ER 16:56
DX: J90 Pleural effusion, not elsewhere classified (principal); I10 Essential (primary) hypertension; E11.9 Type 2 diabetes mellitus without complications; Z98.890 Other specified postprocedural states; Z79.84 Long term (current) use of oral hypoglycemic drugs; Z79.899 Other long term (current) drug therapy
CPT/HCPCS: 36415; 71046; 80048-TC; 80076-TC; 85025-TC

== ENCOUNTER 2020-05-30 11:39 | Inpatient (IN) | payer OTHER ==
[~2020-05-30] VITALS: Ht 180.3 cm; Wt 77.1 kg
--- NOTE | 2020-05-30 11:39 | NUR ---
PT BIB SELF C/O SOB STARTED THIS AM AND LEFT RIB PAIN. PER PT THEY DID THORACENTESIS 1 1/2WEEKS AGO. PT IS AAOX4, NOT IN RESPIRATORY DISTRESS, HOOKED TO THERMOSTAT REPAIRER, KEPT RESTED AND COMFORTABLE. WILL CONTINUE TO MONITOR.
--- NOTE | 2020-05-30 12:08 | NUR ---
AT BEDSIDE FOR EVAL.
--- NOTE | 2020-05-30 12:10 | NUR ---
PT IV LINE ESTABLISHED BLOOD DRAWN AND SENT TO LAB.
[2020-05-30 12:29] LABS: BASOPHILS # (AUTO) 0.1 /CMM (0.0-0.2); BASOPHILS % (AUTO) 0.5 % (0.0-2.0); EOSINOPHILS % (AUTO) 0.5 % (0.0-6.0); HEMATOCRIT 32 % (39-51); HEMOGLOBIN 10.2 g/dL (13.5-17.5); LYMPHOCYTES # (AUTO) 0.7 /CMM (0.8-4.8); LYMPHOCYTES % (AUTO) 6.5 % (20.0-44.0); MEAN CORPUSCULAR HGB CONC 32 g/dl (31.0-36.0); MEAN CORPUSCULAR VOLUME 84 fL (80-96); MONOCYTES # (AUTO) 0.6 /CMM (0.1-1.30); MONOCYTES % (AUTO) 5.5 % (2.0-12.0); NEUTROPHILS # (AUTO) 9.5 /CMM (1.8-8.9); PLATELET COUNT (AUTO) 397 /CMM (150-450); RED BLOOD CELL COUNT(AUTO) 3.81 MIL/uL (4.5-6.0)
--- NOTE | 2020-05-30 12:35 | NUR ---
PATIENT GIVEN A URINAL.
[2020-05-30 12:44] LABS: CALCIUM, SERUM 10.1 mg/dL (8.5-10.1); POTASSIUM 4.6 mmol/L (3.5-5.1)
[2020-05-30 13:06] LABS: ALBUMIN 2.9 g/dL (3.4-5.0); BILIRUBIN,TOTAL 0.5 mg/dL (0.2-1.0); TOTAL PROTEIN, SERUM 7.9 g/dL (6.4-8.2)
--- NOTE | 2020-05-30 13:22 | NUR ---
MOVE SHEET SUBMITTED.
--- NOTE | 2020-05-30 13:48 | NUR ---
COVID SPECIMEN OBTAINED AND SENT TO LAB
[2020-05-30 13:52] LABS: BILIRUBIN,URINE Negative (NEGATIVE); COLOR,URINE YELLOW (YELLOW); LEUKOCYTE ESTERASE ,URINE Negative (NEGATIVE); NITRITE, URINE Negative (NEGATIVE); PH,URINE 5.5 (5.0-8.0); PROTEIN,URINE 30 mg/dl (NEGATIVE); UGLUCOSE Negative (NEGATIVE)
--- NOTE | 2020-05-30 13:56 | NUR ---
SPOKED TO NORMA MARTIN [phone]
--- NOTE | 2020-05-30 14:01 | NUR ---
KENDRA PT SISTER [phone]
[2020-05-30 14:02] LABS: D-DIMER > 35.20 mg/L(FEU (0.17-0.50)
[2020-05-30 14:10] LABS: BACTERIA,URINE Rare /HPF (None Seen); RBC,URINE NONE SEEN /HPF (0-2); SQUAMOUS EPITHELIAL CELL,UR Few /HPF (None Seen); WBC,URINE NONE SEEN /HPF (0-3)
[2020-05-30] MEDS ORDERED: MORPHINE SULFATE INJ 2 MG/ML DISP.SYRIN IV PRN (14:30)
[2020-05-30] MEDS ORDERED: ONDANSETRON HCL/PF 4 MG/2 ML VIAL IVP PRN (14:30)
[2020-05-30] MEDS ORDERED: ACETAMINOPHEN 325 MG TABLET PO PRN (14:30)
[2020-05-30] MEDS ORDERED: Z GUARD REMEDY 2 OZ OINT TP PRN (14:30)
--- NOTE | 2020-05-30 15:23 | NUR ---
LAB CALLED PT COVID RESULT NEGATIVE (-)
[2020-05-30 16:03] LABS: C-REACTIVE PROTEIN 12.3 mg/dL (0.0-0.9)
[2020-05-30] MEDS: METOPROLOL TARTRATE 25 MG TABLET PO SCH (17:00)
[2020-05-30] MEDS ORDERED: METFORMIN 500 MG TABLET ONE (17:07)
[2020-05-30] MEDS: METFORMIN 500 MG TABLET PO SCH (17:07)
[2020-05-30] MEDS ORDERED: METOPROLOL TARTRATE 25 MG TABLET ONE (18:58)
--- NOTE | 2020-05-30 19:23 | NUR ---
REPORT GIVEN TO LIGIA BAUTISTA FOR MARGI.
[2020-05-30] MEDS ORDERED: ATORVASTATIN 40 MG TABLET ONE (23:35)
[2020-05-30] MEDS: ATORVASTATIN 40 MG TABLET PO SCH (23:38)
--- NOTE | 2020-05-31 00:02 | NUR ---
PATIENT PROVIDED WITH WARM BLANKET FOR COMFORT
--- NOTE | 2020-05-31 03:40 | NUR ---
PATIENT IS ASLEEP. AROUSABLE THROUGH VERBAL STIMULI. CONNECTED TO THE MONITOR. BREATHING EVENLY AND UNLABORED ON ROOM AIR. SIDE RAILS UP FOR SAFETY. PERSONAL ITEMS ARE WITHIN REACH. CALL LIGHT IS WITHIN REACH. WILL CONTINUE TO MONITOR THE PATIENT CLOSELY.
[2020-05-31 05:00] LABS: BASOPHILS # (AUTO) 0.3 /CMM (0.0-0.2); BASOPHILS % (AUTO) 4.4 % (0.0-2.0); EOSINOPHILS % (AUTO) 3.9 % (0.0-6.0); HEMATOCRIT 26 % (39-51); HEMOGLOBIN 8.5 g/dL (13.5-17.5); LYMPHOCYTES # (AUTO) 0.6 /CMM (0.8-4.8); LYMPHOCYTES % (AUTO) 8.6 % (20.0-44.0); MEAN CORPUSCULAR HGB CONC 33 g/dl (31.0-36.0); MEAN CORPUSCULAR VOLUME 82 fL (80-96); MONOCYTES # (AUTO) 0.8 /CMM (0.1-1.30); MONOCYTES % (AUTO) 10.4 % (2.0-12.0); NEUTROPHILS # (AUTO) 5.4 /CMM (1.8-8.9); NEUTROPHILS % (AUTO) 72.7 % (43.0-81.0); PLATELET COUNT (AUTO) 362 /CMM (150-450); RED BLOOD CELL COUNT(AUTO) 3.13 MIL/uL (4.5-6.0); WHITE BLOOD COUNT (AUTO) 7.4 K/uL (4.3-11.0)
[2020-05-31 05:21] LABS: ALBUMIN 2.4 g/dL (3.4-5.0); BILIRUBIN,TOTAL 0.3 mg/dL (0.2-1.0); CALCIUM, SERUM 9.4 mg/dL (8.5-10.1); CREATININE 0.9 mg/dL (0.6-1.3); MAGNESIUM 1.5 mg/dL (1.8-2.4); POTASSIUM 4.8 mmol/L (3.5-5.1); TOTAL PROTEIN, SERUM 6.6 g/dL (6.4-8.2)
--- NOTE | 2020-05-31 07:39 | NUR ---
PATIENT IS SLEEPING. EASILY AROUSABLE . VSS. BREATHING EVENLY AND UNLABORED ON ROOM AIR. CONNECTED TO THE MONITOR. BED AT THE LOWEST POSITION. CALL LIGHT IS WITHIN REACH.
--- NOTE | 2020-05-31 07:44 | NUR ---
REPORT GIVEN TO LIANNA STRONG FOR MARGI.
--- NOTE | 2020-05-31 08:18 | NUR ---
BREAKFAST TRAY PROVIDED, TOLERATING PO WELL.
[2020-05-31] MEDS ORDERED: BENAZEPRIL HCL 10 MG TABLET ONE (09:10)
[2020-05-31] MEDS ORDERED: PANTOPRAZOLE 40 MG TABLET.DR PO ONE (09:11)
[2020-05-31] MEDS ORDERED: METOPROLOL TARTRATE 25 MG TABLET ONE ×2 (09:11→17:36)
[2020-05-31] MEDS ORDERED: METFORMIN 500 MG TABLET ONE ×2 (09:11→17:35)
[2020-05-31] MEDS: GLIMEPIRIDE 4 MG TABLET PO SCH (09:26)
[2020-05-31] MEDS: METOPROLOL TARTRATE 25 MG TABLET PO SCH ×2 (09:26→17:42)
[2020-05-31] MEDS: METFORMIN 500 MG TABLET PO SCH ×2 (09:26→17:42)
[2020-05-31] MEDS: PANTOPRAZOLE 40 MG TABLET.DR PO SCH (09:27)
[2020-05-31] MEDS: BENAZEPRIL HCL 10 MG TABLET PO SCH (09:27)
--- NOTE | 2020-05-31 10:37 | NUR ---
SPOKE TO VALERI ABREU. STILL NEEDS TO CONTACT [facility] FOR THE DOOR MAKER AND NURSE. WILL UPDATE US.
--- NOTE | 2020-05-31 10:40 | NUR ---
PER HOUSE SUP, NO NURSE AVAILABLE TODAY TO DO THE PROCEDURE
[2020-05-31] MEDS ORDERED: Magnesium 1GM/D5W 100ML PREMIX 200 ML IV ONE (12:21)
[2020-05-31] MEDS ORDERED: ASPIRIN 81 MG TAB.CHEW ONE (12:21)
[2020-05-31] MEDS: Magnesium 1GM/D5W 100ML PREMIX 100 ML IV SCH ×2 (12:27→13:30)
--- NOTE | 2020-05-31 13:36 | NUR ---
PATIENT IN BED AWAKE, HOOKED TO MONITOR. WILL CONTINUE TO MONITOR ACCORDINGLY. CALL LIGHT WITHIN REACH. KEPT WARM AND COMFORTABLE
--- NOTE | 2020-05-31 17:33 | NUR ---
SPOEK TO DR TREVINO, AWARE OF INR. NO BLEEDING NOTED FROM PATIENT
--- NOTE | 2020-05-31 19:08 | NUR ---
PATIENT IN BED ASLEEP, AROUSABLE BY VOICE. HOOKED TO MONITOR. KEPT SAFE AND WARM. CALL LIGHT WITHIN REACH. WILL CONTINUE TO MONITOR ACCORDINGLY.
--- NOTE | 2020-05-31 19:23 | NUR ---
ENDORSEMENT GIVEN TO MARLEN STRONG FOR MARGI
--- NOTE | 2020-05-31 19:45 | NUR ---
REC'D REPORT FROM AM SHIFT. PT AWAITING BED UNDER TRANSITION AREA. HERE FOR SOB. PT AAOX4. ABLE TO MAKE NEEDS KNOWN. PT COMFORTABLE. DENIES ANY SOB/CP. PT VSS. WCTM
[2020-06-01] MEDS: ATORVASTATIN 40 MG TABLET PO SCH ×2 (02:03→21:43)
[2020-06-01] MEDS ORDERED: ATORVASTATIN 40 MG TABLET ONE (02:03)
[2020-06-01 05:42] LABS: BASOPHILS # (AUTO) 0.1 /CMM (0.0-0.2); BASOPHILS % (AUTO) 0.7 % (0.0-2.0); EOSINOPHILS % (AUTO) 2.3 % (0.0-6.0); HEMATOCRIT 30 % (39-51); HEMOGLOBIN 9.7 g/dL (13.5-17.5); LYMPHOCYTES # (AUTO) 1.4 /CMM (0.8-4.8); LYMPHOCYTES % (AUTO) 15.2 % (20.0-44.0); MEAN CORPUSCULAR HGB CONC 33 g/dl (31.0-36.0); MEAN CORPUSCULAR VOLUME 83 fL (80-96); MONOCYTES # (AUTO) 0.9 /CMM (0.1-1.30); MONOCYTES % (AUTO) 10.4 % (2.0-12.0); NEUTROPHILS # (AUTO) 6.5 /CMM (1.8-8.9); NEUTROPHILS % (AUTO) 71.4 % (43.0-81.0); PLATELET COUNT (AUTO) 416 /CMM (150-450); RED BLOOD CELL COUNT(AUTO) 3.63 MIL/uL (4.5-6.0); WHITE BLOOD COUNT (AUTO) 9.1 K/uL (4.3-11.0)
[2020-06-01 06:06] LABS: CALCIUM, SERUM 9.3 mg/dL (8.5-10.1); POTASSIUM 5.1 mmol/L (3.5-5.1)
--- NOTE | 2020-06-01 06:31 | NUR ---
NO ACUTE EVENTS NOTED. NOT IN ANY DISTRESS, VSS, NAD. WCTM
[2020-06-01] MEDS ORDERED: NITROGLYCERIN 0.4 MG/TAB BOTTLE SL ONE (08:00)
[2020-06-01 08:02] LABS: D-DIMER 5.41 mg/L(FEU (0.17-0.50)
--- NOTE | 2020-06-01 08:12 | NUR ---
wheeled patient via wheelchair accompanied by RN for CTA.
[2020-06-01] MEDS ORDERED: IOHEXOL-350 100 ML VIAL IV ONE (08:20)
[2020-06-01] MEDS ORDERED: IV NS 0.9% 250 ML IV ONE (08:21)
[2020-06-01] MEDS ORDERED: METOPROLOL TARTRATE INJ 5 MG/5 ML AMPUL ONE ×2 (08:25→08:26)
[2020-06-01] MEDS: METOPROLOL TARTRATE INJ 5 MG/5 ML AMPUL IVP PRN ×3 (08:29→08:40)
[2020-06-01] MEDS: METFORMIN 500 MG TABLET PO SCH ×2 (09:00→16:49)
--- NOTE | 2020-06-01 09:11 | NUR ---
patient came back from CTA
[2020-06-01] MEDS ORDERED: ASPIRIN 81 MG TAB.CHEW ONE (09:27)
[2020-06-01] MEDS ORDERED: PANTOPRAZOLE 40 MG TABLET.DR PO ONE (09:27)
[2020-06-01] MEDS ORDERED: BENAZEPRIL HCL 10 MG TABLET ONE (09:27)
[2020-06-01] MEDS ORDERED: METOPROLOL TARTRATE 25 MG TABLET ONE (09:27)
[2020-06-01] MEDS: GLIMEPIRIDE 4 MG TABLET PO SCH (09:34)
[2020-06-01] MEDS: ASPIRIN 81 MG TAB.CHEW PO SCH (09:34)
[2020-06-01] MEDS: METOPROLOL TARTRATE 25 MG TABLET PO SCH ×2 (09:34→16:46)
[2020-06-01] MEDS: BENAZEPRIL HCL 10 MG TABLET PO SCH (09:35)
[2020-06-01] MEDS: PANTOPRAZOLE 40 MG TABLET.DR PO SCH (09:35)
--- NOTE | 2020-06-01 13:30 | NUR ---
COLOR CHECKER ROVING OR YARN ADMITTING NOTES RECEIVED PATIENT IN MEDICALLY STABLE CONDITION. PATIENT A/O X4, ON OXYGEN THERAPY AT 3 LPM VIA NASAL CANULA. VITAL SIGNS WNL: BP 111/51 HR:60 R:18 TEMP: 97.5 O2 100% VIA NASAL CANULA. NO COMPLAINS OF PAIN AT THIS TIME. SAFETY PRECAUTIONS IN PLACE; BED IN LOW POSITION AND LOCKED, RAILS UP X2, CALL LIGHT WITHIN REACH. WILL CONTINUE TO MONITOR PATIENT.
--- NOTE | 2020-06-01 13:56 | NUR ---
wheeled patient via gurney accompanied by RN and emt in no distress. RN at bedside to assume care.
[2020-06-01] MEDS ORDERED: METOPROLOL TARTRATE 25 MG TABLET PO SCH (17:30)
--- NOTE | 2020-06-01 19:34 | NUR ---
RECHECKER CLOSING NOTES PATIENT REMAINS IN BED, A/O X4, AWAKE. PATIENT ON OXYGEN THERAPY AT 3 LPM VIA NASAL CANULA; BREATHING EVEN AND UNLABORED. NO COMPLAINS OF PAIN DURING SHIFT. LFA IV ACCESS PRESENT AND INTACT; SL. ALL NEEDS ATTENDED DURING THE DAY. SAFETY PRECAUTIONS IN PLACE; BED IN LOW POSITION AND LOCKED, RAILS UP X2, CALL LIGHT WITHIN REACH. WILL ENDORSE TO CCO & PRESIDENT NURSE.
--- NOTE | 2020-06-01 19:45 | NUR ---
ELECTRIC DOLLY OPERATOR OPENING NOTE REPORT RECIEVED FORM YOBANY STRONG. PATIENT IN BED, A/O X4, AWAKE. PATIENT ON ROOM AIR; BREATHING EVEN AND UNLABORED. LFA IV ACCESS PRESENT AND INTACT; SL. ASAFETY PRECAUTIONS IN PLACE; BED IN LOW POSITION AND LOCKED, RAILS UP X2, CALL LIGHT WITHIN REACH. VERBALIZED UNDERSTANDING TO CALL FOR ASSISTANCE IF NEEDED.
[2020-06-01 20:00] VITALS: BP 134/65
[2020-06-01] MEDS ORDERED: ATORVASTATIN 40 MG TABLET PO SCH (22:00)
[2020-06-02] VITALS: BP_SYST 112; BP_SYST 130; BP_DIAS 62; BP_DIAS 69
[2020-06-02 05:05] VITALS: BP 117/62
[2020-06-02 07:10] LABS: BASOPHILS # (AUTO) 0.1 /CMM (0.0-0.2); BASOPHILS % (AUTO) 0.8 % (0.0-2.0); EOSINOPHILS % (AUTO) 2.6 % (0.0-6.0); HEMATOCRIT 29 % (39-51); HEMOGLOBIN 9.6 g/dL (13.5-17.5); LYMPHOCYTES # (AUTO) 1.2 /CMM (0.8-4.8); LYMPHOCYTES % (AUTO) 15.7 % (20.0-44.0); MEAN CORPUSCULAR HGB CONC 33 g/dl (31.0-36.0); MEAN CORPUSCULAR VOLUME 82 fL (80-96); MONOCYTES # (AUTO) 0.8 /CMM (0.1-1.30); MONOCYTES % (AUTO) 10.2 % (2.0-12.0); NEUTROPHILS # (AUTO) 5.5 /CMM (1.8-8.9); NEUTROPHILS % (AUTO) 70.7 % (43.0-81.0); PLATELET COUNT (AUTO) 344 /CMM (150-450); RED BLOOD CELL COUNT(AUTO) 3.53 MIL/uL (4.5-6.0); WHITE BLOOD COUNT (AUTO) 7.8 K/uL (4.3-11.0)
[2020-06-02 08:07] LABS: IMMUNOGLOBULIN A, SERUM 354 mg/dL (61-437); IMMUNOGLOBULIN G, SERUM 892 mg/dL (603-1613); IMMUNOGLOBULIN M, SERUM 59 mg/dL (20-172)
[2020-06-02 08:19] VITALS: BP 121/65
[2020-06-02] MEDS: METFORMIN 500 MG TABLET PO SCH ×2 (09:00→09:32)
[2020-06-02] MEDS: ASPIRIN 81 MG TAB.CHEW PO SCH (09:32)
[2020-06-02] MEDS: PANTOPRAZOLE 40 MG TABLET.DR PO SCH (09:32)
[2020-06-02] MEDS: GLIMEPIRIDE 4 MG TABLET PO SCH (09:32)
[2020-06-02 09:33] VITALS: BP 121/65
[2020-06-02] MEDS: BENAZEPRIL HCL 10 MG TABLET PO SCH (09:33)
[2020-06-02] MEDS: METOPROLOL TARTRATE 25 MG TABLET PO SCH (09:33)
[2020-06-02 13:06] LABS: *SPE A/G RATIO 0.6 (0.7-1.7); *SPE ALBUMIN 2.4 g/dL (2.9-4.4); *SPE ALPHA-1-GLOBULIN 0.5 g/dL (0.0-0.4); *SPE ALPHA-2-GLOBULIN 1.4 g/dL (0.4-1.0); *SPE BETA GLOBULIN 1.2 g/dL (0.7-1.3); *SPE GLOBULIN, TOTAL 4.1 g/dL (2.2-3.9); *SPE M-SPIKE Not Observed g/dL (Not Observed)
[2020-06-02] MEDS ORDERED: METO25TA20 PO (13:53)
[2020-06-02] MEDS ORDERED: ASPI-1169 PO (13:53)
[2020-06-02] MEDS ORDERED: Warfarin Sodium PO (13:53)
[2020-06-02] MEDS ORDERED: WARF3TAB59 PO (13:54)
--- NOTE | 2020-06-02 16:58 | NUR ---
RN MS NOTES PT AWAKE, WALKING IN HIS ROOM WITH STEADY GAIT, NO COMPLAINT OF PAIN, TOLERATING ROOM AIR,NO COMPLAINT OF SHORTNESS OF BREATH, SEEN BY DR. LINK, DISCHARGE ORDER GIVEN, DISCHARGE AND MEDICATION INSTRUCTIONS PROVIDED TO PT, VERBALIZED UNDERSTANDING, NO DRAINAGE NOTED TO LEFT CHEST DRAIN, BELONGINGS ACCOUNTED FOR, NEW PRESCRIPTION SENT BY MD TO PT'S OWN PHARMACY, ASSISTED TO HOSPITAL LOBBY, PICKED UP BY SON ROEL, LEFT VIA PRIVATE CAR IN STABLE CONDITION.
[2020-06-02] MEDS ORDERED: WARFARIN SODIUM 1 MG TABLET PO SCH (17:00)
== END 2020-06-02 16:30 | disposition home health service (06) | DRG 134 ==
LOC: ER 11:44 → UNDOADMIN 16:58 → TELE1 16:58 → TRANSITION 23:11 → TELE 06-01 13:02 → MED 06-02 11:03
PROVIDERS: ADMIT Internal Medicine; ATTEND Student in an Organized Health Care Education/Training Program
DX: I26.99 Other pulmonary embolism without acute cor pulmonale (principal); J96.01 Acute respiratory failure with hypoxia; I21.A1 Myocardial infarction type 2; E44.1 Mild protein-calorie malnutrition; C64.9 Malignant neoplasm of unspecified kidney, except renal pelvis; C78.00 Secondary malignant neoplasm of unspecified lung; Z20.822 Contact with and (suspected) exposure to COVID-19; I10 Essential (primary) hypertension; E11.9 Type 2 diabetes mellitus without complications; Z98.890 Other specified postprocedural states; Z79.84 Long term (current) use of oral hypoglycemic drugs; Z79.899 Other long term (current) drug therapy; D63.8 Anemia in other chronic diseases classified elsewhere; Z87.891 Personal history of nicotine dependence; I25.5 Ischemic cardiomyopathy; I25.10 Atherosclerotic heart disease of native coronary artery without angina pectoris; M79.9 Soft tissue disorder, unspecified
CPT/HCPCS: 36415; 71045-TC; 71250-TC; 75574; 80048-TC; 80053-TC; 80061-TC; 81001; 82550-TC; 82728-TC; 82784; 83605-TC; 83615-TC; 83735-TC; 83880; 84100-TC; 84155; 84165; 84484-TC; 85025-TC; 85378-TC; 85385-TC; 85396; 85610-TC; 85730-TC; 86140-TC; 86334; 87040-TC; 87081-TC; 87086-TC; 93307-TC; A6403; C9803; G0378; J3475; J3490; J7050; Q9967